=== PATIENT | female | born 1990 | race Hispanic/Latino ===

== ENCOUNTER 2022-04-01 01:16 | Emergency (ER) | payer OTHER ==
[2022-04-01] MEDS ORDERED: DIPHENHYDRAMINE 50 MG/ML VIAL ONE (01:36)
[2022-04-01] MEDS ORDERED: LORAZEPAM 1 MG TABLET ONE (01:50)
--- NOTE | 2022-04-01 04:40 | EDPHYS ---
Physician Documentation [facility] Name: Mahsa Medeiros Age: 31 yrs Sex: Female : 1990 Arrival Date: 04/01/2022 Time: 01:17 Bed 5 Private MD: ED Physician Richard Jung HPI: 04/01 04:43 This 31 yrs old Female presents to ER via EMS with complaints of Vomiting, kdr Anxiety. 04:43 14 discharge: About 11:30 PM last night the patient became very anxious and upset. So kdr unclear what exactly precipitated these events. She also was vomiting several times. She states that she has never had panic attacks before but she was clearly hyperventilating and causing herself to suffer the consequences of a diminished CO2 with cramping of her hands and feet. She stated that she had a lot of stress with her job and family. She denied any other threat of injury to herself or others. (No SI/HI). Onset: The symptoms/episode began/occurred suddenly, just prior to arrival. Severity of symptoms: At their worst the symptoms were moderate severe incapacitating in the emergency department the symptoms are unchanged. The patient has not experienced similar symptoms in the past. The patient has not recently seen a physician. [employer]: 01:22 LMP 04/01/2022 tw5 Historical: - Allergies: 01:22 No Known Allergies; tw - Home Meds: : None [Active]; tw5 - PMHx: 01:22 Depressive disorder; - Immunization history:: Flu vaccine is not up to date. - Social history:: Smoking status: Reported history of juuling and/or vaping. ROS: 04:43 Constitutional: Negative for fever, chills, and weight loss, Eyes: Negative for injury, kdr pain, redness, and discharge, ENT: Negative for injury, pain, and discharge, Neck: Negative for injury, pain, and swelling, Cardiovascular: Negative for chest pain, palpitations, and edema, Respiratory: Negative for shortness of breath, cough, wheezing, and pleuritic chest pain, Abdomen/GI: Negative for abdominal pain, nausea, vomiting, diarrhea, and constipation, Back: Negative for injury and pain, : Negative for injury, bleeding, discharge, and swelling, MS/Extremity: Negative for injury and deformity, Skin: Negative for injury, rash, and discoloration, Neuro: Negative for headache, weakness, numbness, tingling, and seizure activity. Allergy/Immunology: Negative for hives, rash, and allergies, Endocrine: Negative for neck swelling, polydipsia, polyuria, polyphagia, and marked weight changes, Hematologic/Lymphatic: Negative for swollen nodes, abnormal bleeding, and unusual bruising. 04:43 Psych: Positive for anxiety, Negative for depression, drug dependence, alcohol dependence, auditory hallucinations, visual hallucinations, homicidal ideation, insomnia, suicide gesture, suicidal ideation. Exam: 04:43 Constitutional: This is a well developed, well nourished patient who is awake, alert, kdr and in moderate distress. Head/Face: Normocephalic, atraumatic. Eyes: Pupils equal round and reactive to light, extra-ocular motions intact. Lids and lashes normal. Conjunctiva and sclera are non-icteric and not injected. Cornea within normal limits. Periorbital areas with no swelling, redness, or edema. Neck: Trachea midline, no thyromegaly or masses palpated, and no cervical lymphadenopathy. Supple, full range of motion without nuchal rigidity, or vertebral point tenderness. No Meningismus. Chest/axilla: Normal chest wall appearance and motion. Nontender with no deformity. No lesions are appreciated. Cardiovascular: Regular rate and rhythm with a normal S1 and S2. No gallops, murmurs, or rubs. Normal PMI, no JVD. No pulse deficits. Respiratory: Lungs have equal breath sounds bilaterally, clear to auscultation and percussion. No rales, rhonchi or wheezes noted. No increased work of breathing, no retractions or nasal flaring. Abdomen/GI: Soft, non-tender, with normal bowel sounds. No distension or tympany. No guarding or rebound. No evidence of tenderness throughout. Back: No spinal tenderness. No costovertebral tenderness. Full range of motion. Skin: Warm, dry with normal turgor. Normal color with no rashes, no lesions, and no evidence of cellulitis. MS/ Extremity: Pulses equal, no cyanosis. Neurovascular intact. Full, normal range of motion. 04:43 Neuro: Awake and alert, GCS 15, oriented to person, place, time, and situation. Cranial nerves II-XII grossly intact. Motor strength 5/5 in all extremities. Sensory grossly intact. Cerebellar exam normal. Normal gait. 04:43 Neuro: Orientation: is normal, Mentation: is normal. 04:43 Psych: Behavior/mood is cooperative, anxious, inappropriate for age, Affect is animated, Oriented to person, place, time, Patient has no thoughts/intents to harm self or others. Judgement / Insight is normal. Memory is normal. Delusions/hallucinations are not present. Vital Signs: 01:18 BP 109 / 76; Pulse 78; Resp 26; Pulse Ox 100% ; Weight 58.97 kg; Height 5 ft. 3 in. tw5 (160.02 cm); Pain 7/10; 01:34 Temp 97.8; tw5 01:34 BP 109 / 76; Pulse 73; Resp 18; Pulse Ox 100% on R/A; tw5 03:26 BP 121 / 76; Pulse 94; Resp 18; Pulse Ox 100% on 2 lpm NC; tw5 05:06 BP 115 / 63; Pulse 98; Pulse Ox 99% on R/A; tw5 01:18 Body Mass Index 23.03 (58.97 kg, 160.02 cm) tw5 MDM: 04:40 Patient medically screened. kdr 04:43 Data reviewed: vital signs, nurses notes. Counseling: I had a detailed discussion with kdr the patient and/or guardian regarding: the historical points, exam findings, and any diagnostic results supporting the discharge/admit diagnosis, the need for outpatient follow up. Administered Medications: 01:40 Drug: Benadryl (diphenhydrAMINE) 25 mg Route: IVP; Site: right hand; tw5 01:46 Follow up: Response: No adverse reaction tw5 01:46 Drug: Ativan (LORazepam) 1 mg Route: PO; tw5 05:18 Follow up: Response: No adverse reaction; Anxiety decreased tw5 Disposition Summary: 04/01/22 04:40 Discharge Ordered Location: Home kdr Problem: new kdr Symptoms: have improved kdr Condition: Stable kdr Diagnosis - Anxiety disorder, unspecified kdr Followup: kdr - With: Private Physician - When: 2 - 3 days - Reason: If symptoms return, Further diagnostic work-up, Recheck today's complaints, Continuance of care, Re-evaluation by your physician Discharge Instructions: - Discharge Summary Sheet kdr - Panic Attack, [id number] kdr - Generalized Anxiety Disorder, Adult kdr Forms: - Medication Reconciliation Form kdr - Thank You Letter kdr Prescriptions: - Ativan 0.5 mg Oral Tablet - take 1 tablet by ORAL route every 8 hours As needed; 9 tablet; Refills: 0, kdr Product Selection Permitted Signatures: Richard Jung MD MD kdr Netta Schilling tw5
--- NOTE | 2022-04-01 04:40 | ER ---
Nurse's Notes [facility] Name: Mahsa Medeiros Age: 31 yrs Sex: Female : 1990 Arrival Date: 04/01/2022 Time: 01:17 Bed 5 Private MD: Diagnosis: Anxiety disorder, unspecified Presentation: 04/01 01:18 Chief complaint: EMS states: "She started to vomit around 1130 PM tonight. She vomited tw5 twice while we were there. She was shaking and saying she felt really anxious. She states she has never had an anxiety attack before.". Coronavirus screen: Vaccine status: Patient reports receiving the 2nd dose of the covid vaccine. [employer]. Ebola Screen: Patient negative for fever greater than or equal to 101.5 degrees Fahrenheit, and additional compatible Ebola Virus Disease symptoms Patient denies exposure to infectious person. Patient denies travel to an Ebola-affected area in the 21 days before illness onset. Initial Sepsis Screen: Does the patient meet any 2 criteria? No. Patient's initial sepsis screen is negative. Does the patient have a suspected source of infection? No. Patient's initial sepsis screen is negative. Risk Assessment: Do you want to hurt yourself or someone else? Patient reports no desire to harm self or others. Onset of symptoms was March 31, 2022 at 23:00. 01:18 Method Of Arrival: EMS: [facility] tw5 01:18 Acuity: ANA 3 tw5 Triage Assessment: 01:22 General: Appears uncomfortable, Behavior is anxious. Pain: Complains of pain in back tw5 and anterior aspect of left shoulder Pain currently is 7 out of 10 on a pain scale. Neuro: Level of Consciousness is awake, alert, obeys commands. Respiratory: Airway is patent Trachea midline Respiratory effort is shallow, Respiratory pattern is hyperventilation Non-breather placed on patient- instructed to slow down breating. GI: Reports nausea, vomiting. 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 - Social history:: Smoking status: Reported history of juuling and/or vaping. Screenin:24 Abuse screen: Denies threats or abuse. Denies injuries from another. Nutritional tw5 screening: No deficits noted. Tuberculosis screening: No symptoms or risk factors identified. Fall Risk Gait- Normal/Bed Rest/Wheelchair (0 pts). Assessment: 01:24 General: Reports "I am having a hard time focusing, I feel like I cannot even open up tw5 my eyes.":. GI: Reports nausea, vomiting. 01:34 General: Reports "I feel paranoid now.". tw5 03:26 General: Reports "I just want to go to sleep now. Can you move my phone it keeps going tw5 off and it is bugging me.". Pain: Denies pain. GI: Abdomen is flat, non-distended. 05:06 General: Reports "I just want to sleep. Everyone is asleep right now and cannot get tw5 me.". Vital Signs: 01:18 BP 109 / 76; Pulse 78; Resp 26; Pulse Ox 100% ; Weight 58.97 kg; Height 5 ft. 3 in. tw5 (160.02 cm); Pain 7/10; 01:34 Temp 97.8; tw5 01:34 BP 109 / 76; Pulse 73; Resp 18; Pulse Ox 100% on R/A; tw5 03:26 BP 121 / 76; Pulse 94; Resp 18; Pulse Ox 100% on 2 lpm NC; tw5 05:06 BP 115 / 63; Pulse 98; Pulse Ox 99% on R/A; tw5 01:18 Body Mass Index 23.03 (58.97 kg, 160.02 cm) tw5 ED Course: 01:17 Patient arrived in ED. wm 01:18 Netta Schilling is Primary Nurse. tw5 01:22 Triage completed. tw5 01:22 Richard Jung MD is Attending Physician. kdr 01:22 Arm band placed on Patient placed in an exam room. tw5 01:24 Placed in gown. Bed in low position. Call light in reach. Side rails up X2. Pulse ox tw5 on. NIBP on. Door closed. Noise minimized. Moved to private room. Warm blanket given. Verbal reassurance given. 01:40 Inserted saline lock: 22 gauge in right hand, using aseptic technique. tw5 05:19 No provider procedures requiring assistance completed. IV discontinued, intact, tw5 bleeding controlled, No redness/swelling at site. Pressure dressing applied. Administered Medications: 01:40 Drug: Benadryl (diphenhydrAMINE) 25 mg Route: IVP; Site: right hand; 01:46 Follow up: Response: No adverse reaction 01:46 Drug: Ativan (LORazepam) 1 mg Route: PO; tw5 05:18 Follow up: Response: No adverse reaction; Anxiety decreased tw Medication: 01:24 VIS not applicable for this client. tw5 Outcome: 04:40 Discharge ordered by . abi 05:19 Discharged to home tw 05:19 Condition: good 05:19 Discharge instructions given to patient, Instructed on discharge instructions, follow up and referral plans. Demonstrated understanding of instructions, follow-up care, medications, Prescriptions given X 1. 05:19 Patient left the ED. tw5 Signatures: Richard Jung MD MD kdr Marsh, Wendy wm Wood, Tiffany tw5
[2022-04-01 06:49] VITALS: TEMP 97.8
[2022-04-01 06:53] VITALS: BP 115/63; O2SAT 99
== END 2022-04-01 05:19 | disposition home or self-care (01) ==
LOC: ER 01:16
DX: F41.9 Anxiety disorder, unspecified (principal); R11.10 Vomiting, unspecified
CPT/HCPCS: 96374; 99284; J1200